=== PATIENT | male | born 1970 | race Caucasian/White ===

== ENCOUNTER 2018-03-22 10:28 | Inpatient (IN) | payer SELFPAY ==
[2018-03-22 12:17] LABS: #Eosinphils 0.4 thou/uL (0.0-0.7); #Lymphocytes 1.1 thou/uL (1.20-3.40); #Monocytes 0.5 thou/uL (0.11-0.59); %Basophils 0.4 % (0.0-1.0); %Eosinophils 7.3 % (0.0-10.0); %Lymphocytes 22.9 % (21.0-51.0); %Monocytes 9.4 % (0.0-10.0); %Neutrophils 60.1 % (42.0-75.0); Hemoglobin 12.4 g/dL (14.0-18.0); Mean Corpuscular HGB CONC 32.2 g/dL (32.0-36.0); Mean Corpuscular Hemoglobin 30.4 pg (27.0-31.0); Mean Corpuscular Volume 94.6 fL (78.0-98.0); Mean Platelet Volume 6.2 fL (7.4-10.4); Platelet Count 329 thou/uL (130-400); RBC Distribution Width 12.7 % (11.5-14.5); Red Blood Cell (RBC) Count 4.07 mill/uL (4.70-6.10)
[2018-03-22 12:31] LABS: ALT (SGPT) 28 U/L (8-55); AST (SGOT) 15 U/L (5-34); Albumin 3.7 g/dL (3.5-5.0); Alkaline Phosphatase 78 U/L (40-150); Anion Gap 13 mmol/L (10-20); BUN (Urea Nitrogen) 15 mg/dL (8.9-20.6); Bilirubin, Total 0.2 mg/dL (0.2-1.2); CRP (Inflammatory) 5.29 mg/dL (= or < 0.5); Calc. Creatinine Clearance 0 mL/min (70-130); Calcium 9.1 mg/dL (7.8-10.44); Carbon Dioxide 23 mmol/L (22-29); Chloride 108 mmol/L (98-107); Estimated GFR-MDRD 78; Glucose 76 mg/dL (70-105); Potassium 4.5 mmol/L (3.5-5.1); Protein, Total 7.7 g/dL (6.0-8.3); Sodium 139 mmol/L (136-145)
--- NOTE | 2018-03-22 12:51 | RAD ---
LEFT KNEE 4 VIEWS: HISTORY: Abscess. Pain. COMPARISON: None. FINDINGS: There is marked soft tissue swelling in the pretibial soft tissues at the level of the tibial tuberos ity. No significant joint effusion. No displaced fracture or malalignment. Mild medial compartment osteophyte formation. No osseous erosions are appreciated. Seen only on the lateral radiograph is a radiopacity projecting over the distal femur which may repre sent a zipper. There are punctate anterolateral soft tissue radiopacities. IMPRESSION: Marked soft tissue swelling over the tibial tuberosity. This may reflect underlying abscess given th e patient history. Contusion is also a possibility as well as superficial infrapatellar bursitis. POS: [facility]
--- NOTE | 2018-03-22 14:45 | PDOC.FPRHP ---
- History of Present Illness Chief Complaint: L knee bursitis History of Present Illness: This is a 47yo M with no PMH presenting to the ER with 2 month hx of LLE pain and swelling. Pt reports redness and painful swelling started around the knee and spread down to his ankle over 2 months. Reports pain is centered around the knee and is exacerbated by activity and palpation. Related symptoms of subjective fevers and fever at home (reported tmax 103), and decreased PO intake. Pt reports seeing [facility] ([facility] ) and them having drained his knee two weeks ago, and that he saw an orthopedic surgeon 10 days ago who gave him Bactrim but that it did not help. Two days ago pt tried to drain the wound himself by applying pressure and reports to have drained around 20ml of blood and "white stuff". Pt works in [employer] and spends a lot of time on his knees. ED Course: Pt got 1g of Vanc and had CBC, CMP, and ESR drawn. ER consulted orthopedic surgery who recommends admission and that they will evaluate. - Allergies/Adverse Reactions Allergies Allergy/AdvReac Type Severity Reaction Status Date / Time No Known Allergies Allergy Verified 03/27/17 15:44 - Home Medications Medication Instructions Recorded Confirmed Type No Known [No Known] 03/27/17 03/27/17 History - History PMHx: none PSHx: none FHx: Grandmother- Colon cancer, Father- valvulopathy Social: Tobacco- 20 pack year history (quit 2 years ago), past EtOH misuse ( quit drinking 5 years ago) - Review of Systems General: reports: fever/chills, weight/appetite/sleep changes Respiratory: denies: cough, congestion, shortness of breath Cardiovascular: denies: chest pain, palpitation Gastrointestinal: denies: nausea, vomiting, abdominal pain Skin: reports: lesions, itching Musculoskeletal: reports: tenderness, swelling Neurological: denies: syncope, seizure - Vital signs BP: 110/78 HR: 59 RR: 16 Tmax: 97.8 Pox: 97% on RA Wt: 100kg - Physical Exam Constitutional: NAD HEENT: normocephalic and atraumatic, EOMI, conjunctiva clear, MMM Heart: RRR, normal S1/S2, pulses present Lungs: CTAB, no respiratory distress, no wheezing Abdomen: soft, non-tender, bowel sounds present Musculoskeletal: normal structure, normal tone Skin: good turgor, capillary refill <2 seconds, other (LLE Erythema, and pitting edema extending 4cm superior to patela to distal ankle. Area is tender to palpation especially around knee. 2-3 draining (serous fluid) pustules around knee.) Psychiatric: normal mood and affect, good judgment and insight FMR H&P: Results - Labs Result Diagrams: 03/22/18 12:05 03/22/18 12:05 Lab results: WBC 5.0 thou/uL (4.8-10.8) 03/22/18 12:05 Hgb 12.4 g/dL (14.0-18.0) L 03/22/18 12:05 Hct 38.5 % (42.0-52.0) L 03/22/18 12:05 MCV 94.6 fL (78.0-98.0) 03/22/18 12:05 Plt Count 329 thou/uL (130-400) 03/22/18 12:05 Neutrophils % 60.1 % (42.0-75.0) 03/22/18 12:05 ESR Westergren 60 mm/hr (Less than 15) 03/22/18 12:05 Sodium 139 mmol/L (136-145) 03/22/18 12:05 Potassium 4.5 mmol/L (3.5-5.1) 03/22/18 12:05 Chloride 108 mmol/L (98-107) H 03/22/18 12:05 Carbon Dioxide 23 mmol/L (22-29) 03/22/18 12:05 BUN 15 mg/dL (8.9-20.6) 03/22/18 12:05 Creatinine 1.02 mg/dL (0.6-1.3) 03/22/18 12:05 Glucose 76 mg/dL (70-105) 03/22/18 12:05 Calcium 9.1 mg/dL (7.8-10.44) 03/22/18 12:05 Total Bilirubin 0.2 mg/dL (0.2-1.2) 03/22/18 12:05 AST 15 U/L (5-34) 03/22/18 12:05 ALT 28 U/L (8-55) 03/22/18 12:05 Alkaline Phosphatase 78 U/L (40-150) 03/22/18 12:05 C-Reactive Protein 5.29 mg/dL (= or < 0.5) H 03/22/18 12:05 Serum Total Protein 7.7 g/dL (6.0-8.3) 03/22/18 12:05 Albumin 3.7 g/dL (3.5-5.0) 03/22/18 12:05 FMR H&P: A/P - Problem List (1) Septic infrapatellar bursitis of left knee Current Visit: Yes Status: Acute Code(s): M71.162 - OTHER INFECTIVE BURSITIS , LEFT KNEE; B96.89 - OTH BACTERIAL AGENTS THE CAUSE OF DISEASES CLASSD [id number] (2) Cellulitis Current Visit: Yes Status: Acute Code(s): L03.90 - CELLULITIS, UNSPECIFIED - Plan This is a previously healthy 47yo M presenting with L septic bursitis and cellulitis extending down the distal LLE. Septic Bursitis/Cellulitis A- Pt does not meet any SIRS criteria and appears well but locally has impressive LLE exam. Pt reported to have failed outpatient treatment with an orthopedic surgeon. Received 1gm of Vanc in ED. P- Admit to inpatient - Resume Vanc 1.5g Q8HR, follow up on vanc trough - Await orthopedic surgery recs - monitor CBC and BMP Diet- NPO until ortho sees pt IVF- D5 1/2 NS 125ml/hr PPx- lovenox 40mg FMR H&P: Upper Level - Pertinent history 47 yo CM with no reported PMH p/w left knee pain, swelling, and redness for 2 months that has failed outpatient treatment. Pt first noticed pain and swelling to left knee and presented to stand alone ER when out of town. He was referred to sports medicine clinic in [place] for possible arthrocentesis. Pt had joint drained 2 weeks ago and was told he had patellar bursitis. Pt then visited orthopedic surgeon, Dr. Rosas, who prescribed Bactrim. Pt is currently on day 7 of his antibiotic course but presented to ER for worsening symptoms including fevers and drainage of clear/purulent fluid. - Pertinent findings Gen: Well developed in NAD CV: RRR, no MMR Resp: nonlabored, CTAB Abd: BS+, NTTP Ext: Significant erythema with 1+ pitting edema of LLE 4 cm above knee to distal ankle. Small areas of serous drainage just below patella. Significant TTP. - Plan Date/Time: 03/22/18 0725 I, Demar Oh MD PGY-3, have evaluated this patient and agree with findings/ plan as outlined by international organizer resident. Pertinent changes/additions are listed here. 1. Septic pre-patellar bursitis of left knee, failed outpatient management -Pt has failed outpatient treatment with Bactrim, admit to inpatient surgical floor -Orthopedic surgery consulted from ER, recommendations greatly appreciated -Wound and blood cultures obtained in ER but after administration of abx, await results -Will continue pt on Vancomycin for MRSA coverage -Keep NPO until surgical evaluation, start on D5 1/2NS @ 125. Resume diet if no surgical intervention planned. FULL code PPX: Lovenox for VTE, no GI indicated Disposition: Admit under inpatient status for anticipated length of stay greater than 2 midnights.
[2018-03-22] MEDS ORDERED: Dextrose 5 %-0.45 % NaCl 1,000 ML IV SCH (14:48)
[2018-03-22] MEDS ORDERED: Ondansetron ODT 4 MG TAB PO PRN (14:48)
[2018-03-22] MEDS ORDERED: Acetaminophen 325 MG TAB PO PRN (14:48)
[2018-03-22] MEDS ORDERED: Ondansetron HCl/PF 4 MG/2 ML Vial IVP PRN (14:48)
[2018-03-22 15:22] VITALS: BMI 31.5
--- NOTE | 2018-03-22 20:49 | HP ---
I have examined the patient. I have discussed the case with Dr. Mark Romero and agree with his as sessment and plan. HISTORY OF PRESENT ILLNESS: Briefly, Mr. Osullivan is a pleasant 47-year-old white male patient who roa d a left prepatellar bursitis examined by a physician in [place] approximately 3-4 months ago. I t was drained at that time, but found not to be infectious. Over the ensuing weeks, Mr. Osullivan took a course of Bactrim, but later developed more redness and pain in the area. He had been working in [place] and returned to [place] several days ago. The knee became progressively redder and began to drain a "bloody pus" looking drainage. He also had fever and chills. He came to our ER today and wa s subsequently admitted with an infected bursitis and surrounding cellulitis. PHYSICAL EXAMINATION: VITAL SIGNS: His temperature is currently 98.1. His pulse rate is 63 and regular, respirations 16, blood pressure is 120/80. GENERAL: Mr. Osullivan is awake, alert, pleasant, in no distress. EAR, NOSE, AND THROAT: Clear. NECK: Supple. CARDIAC: Heart rhythm regular. No gallop or murmur. LUNGS: Clear. No rales or wheezes. ABDOMEN: Flat and soft. EXTREMITIES: With particular attention to his left knee, he has redness and pain over his prepatella r bursa of the left knee. The joint does not appear to be involved. There is a cellulitis extending distally to just beyond the mid shaft of the tibia. It is erythematous, warm to touch, and has some pitting edema. There are still some pus draining from an incision in the inferior portion of the bu rsa. ASSESSMENT: Infectious bursitis and cellulitis. PLAN: Admit, have started vancomycin. I doubt that the joint is involved, but we will have Orthoped ic examine the patient as well.
[2018-03-22] MEDS: Vancomycin HCl 1.5 GM in Sodium Chloride 0.9% 250 ML 300 ML IVPB SCH (21:27)
--- NOTE | 2018-03-23 05:36 | CON ---
DATE OF CONSULTATION: 03/22/2018 REASON FOR CONSULTATION: Cellulitis of the left leg. 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 He developed pain and swelling in his left knee, was treated with outpatient antibiotics. He had an aspiration of his knee in [place], results of these are not known. About 20 mL of fluid was obta ined. Currently, he is feeling better. His pain is less. He still has some redness and swelling in the leg. He is on IV vancomycin, has been all day. Exam shows a pleasant gentleman in no distress. He has cellulitis over his leg. He has swollen prep atellar bursa with just a small scab in this area. There is no intra-articular effusion and I do not think there is any fluid collection in the prepatellar bursa as of this time. ASSESSMENT: Prepatellar bursitis. No evidence of septic knee. Plan at this time is for IV vancomyc in. This is likely a resistant organism. We will follow for collections of fluid, which may have to be drained. I explained to him that sometimes as the infection resolves, some of the necrotic tissu e can possibility, but this time, surgery is not planned.
[2018-03-23 05:40] LABS: #Eosinphils 0.4 thou/uL (0.0-0.7); #Lymphocytes 1.4 thou/uL (1.20-3.40); #Monocytes 0.5 thou/uL (0.11-0.59); #Neutrophils 2.2 thou/uL (1.40-6.50); %Basophils 0.5 % (0.0-1.0); %Eosinophils 9.5 % (0.0-10.0); %Lymphocytes 31.3 % (21.0-51.0); %Monocytes 10.2 % (0.0-10.0); %Neutrophils 48.5 % (42.0-75.0); Hemoglobin 12.4 g/dL (14.0-18.0); Mean Corpuscular HGB CONC 33.5 g/dL (32.0-36.0); Mean Corpuscular Hemoglobin 31.2 pg (27.0-31.0); Mean Corpuscular Volume 93.2 fL (78.0-98.0); Mean Platelet Volume 6.1 fL (7.4-10.4); Platelet Count 353 thou/uL (130-400); RBC Distribution Width 12.7 % (11.5-14.5); Red Blood Cell (RBC) Count 3.97 mill/uL (4.70-6.10); White Blood Cell (WBC) Count 4.5 thou/uL (4.8-10.8)
[2018-03-23 05:59] LABS: Anion Gap 10 mmol/L (10-20); BUN (Urea Nitrogen) 16 mg/dL (8.9-20.6); Calc. Creatinine Clearance 124 mL/min (70-130); Calcium 8.9 mg/dL (7.8-10.44); Carbon Dioxide 24 mmol/L (22-29); Chloride 109 mmol/L (98-107); Estimated GFR-MDRD 77; Glucose 98 mg/dL (70-105); Potassium 3.9 mmol/L (3.5-5.1); Sodium 139 mmol/L (136-145)
[2018-03-23] MEDS: Vancomycin HCl 1.5 GM in Sodium Chloride 0.9% 250 ML 300 ML IVPB SCH ×3 (06:16→22:59)
--- NOTE | 2018-03-23 08:00 | PDOC.FM ---
- Subjective Subjective: Patient reports that the swelling and redness of his L leg/knee have improved slightly from yesterday. He reports that the pain has not gotten any better, but he does not want any pain medications. He denies any fevers. - Objective MAR Reviewed: Yes Vital Signs & Weight: Vital Signs (12 hours) Temp Pulse Resp BP Pulse Ox 03/23/18 04:00 98.1 F 71 16 114/72 97 03/22/18 23:05 97.9 F 67 16 117/76 95 03/22/18 20:10 98.2 F 68 18 03/22/18 20:00 98.2 F 68 18 123/78 98 Weight Weight 99.79 kg I&O: 03/22/18 03/23/18 03/24/18 06:59 06:59 06:59 Intake Total 500 Balance 500 Result Diagrams: 03/23/18 04:58 03/23/18 04:58 <Susie Smith - Last Filed: 03/23/18 07:58> - Objective Vital Signs & Weight: Vital Signs (12 hours) Temp Pulse Resp BP Pulse Ox 03/23/18 08:00 97.9 F 69 18 103/67 97 03/23/18 04:00 98.1 F 71 16 114/72 97 03/22/18 23:05 97.9 F 67 16 117/76 95 Weight Weight 99.79 kg I&O: 03/22/18 03/23/18 03/24/18 06:59 06:59 06:59 Intake Total 500 Balance 500 Result Diagrams: 03/23/18 04:58 03/23/18 04:58 <Irina Hernandez - Last Filed: 03/23/18 10:37> Phys Exam - Physical Examination Constitutional: NAD HEENT: moist MMs Respiratory: no wheezing, no rales, no rhonchi, clear to auscultation bilateral Cardiovascular: RRR, no significant murmur, no rub Gastrointestinal: soft, non-tender, no distention, positive bowel sounds erythema, warmth, swelling of L leg with weeping from L knee. FROM of L leg, but with pain with movement neurovascularly intact x4 Psychiatric: normal affect, A&O x 3 Skin: normal turgor, cap refill <2 seconds <Susie Smith - Last Filed: 03/23/18 07:58> Dx/Plan (1) Septic prepatellar bursitis of left knee Code(s): M71.162 - OTHER INFECTIVE BURSITIS, LEFT KNEE Status: Acute (2) Cellulitis Code(s): L03.90 - CELLULITIS, UNSPECIFIED Status: Acute QualifierTitle: Site of cellulitis: extremity Site of cellulitis of extremity: lower extremity Laterality: left Qualified Code(s): L03.116 - Cellulitis of left lower limb - Plan Plan: This is a previously healthy 47yo M presenting with L septic bursitis and cellulitis extending down the distal LLE. Septic Pre-patellar Bursitis of L knee Pt does not meet any SIRS criteria and appears, but locally has impressive LLE exam. Pt reported to have failed outpatient treatment with an orthopedic surgeon. Received 1gm of Vanc in ED. - Resume Vanc 1.5g Q8HR, follow up on vanc trough - Ortho consulted, appreciate recs - ultrasound of knee - Blood cultures - Wound cultures Cellulitis of LLE -Plan as above <Susie Smith - Last Filed: 03/23/18 07:58> Attending Addendum - Attending Addendum Date/Time: 03/23/18 1036 I personally evaluated the patient and discussed the management with Dr. Smith. I agree with the History, Examination, Assessment and Plan documented above with any addition or exceptions noted below. The patient is on vancomycin for left knee septic bursitis/cellulitis of the LLE. Redness appears to be slightly improved based on the margins drawn in pen. He notes less pain. Will continue antibiotics. LLE doppler negative for dvt. <Irina Hernandez - Last Filed: 03/23/18 10:37>
--- NOTE | 2018-03-23 08:17 | ULT ---
ULTRASOUND WITH DOPPLER DUPLEX VENOUS LOWER EXTREMITY LEFT CPT: 90139 ICD-10-PCS: B54D HISTORY: Left lower extremity pain, erythema, and edema. TECHNIQUE: Color flow Doppler, spectral waveform analysis of pulsed Doppler, and salazar-scale imaging with aspen luann and augmentation, were used to evaluate the bilateral common femoral, femoral, popliteal, patient service coordinator ior tibial, and superficial femoral, veins; and the proximal portions of the profunda femoral and gre ater saphenous, veins. FINDINGS: Appropriate compressibility and flow within the imaged deep vein system of the left lower extremity. IMPRESSION: No deep vein thrombosis. POS: [facility]
[2018-03-23] MEDS: Enoxaparin Sodium 40 MG/0.4 ML SYRINGE SC SCH (11:19)
[2018-03-23 13:44] LABS: Vancomycin, Trough 19.4 ug/mL
[2018-03-23] MEDS ORDERED: Fentanyl 100 MCG/2 ML VIAL SLOW IVP SCH (14:45)
[2018-03-23] MEDS ORDERED: Lidocaine 1% (PF) 30 ML VIAL SC SCH (14:45)
--- NOTE | 2018-03-23 16:55 | PRG ---
DATE OF SERVICE: 03/23/2018 SUBJECTIVE: Barry is a 47-year-old white male who was admitted to the [facility] Service at t he request of Dr. Rosas for a draining prepatellar bursa. OBJECTIVE: GENERAL: At the bedside, he still has some drainage coming out of the inferior aspect of the wound. His erythema is slightly improved and his range of motion of the knee is improved somewhat. VITAL SIGNS: Temperature 97.4, pulse 65, respiratory rate 14, O2 saturation on room air is 96%, and blood pressure 116/77. GENERAL: He is alert and oriented to person, place, time, and situation. Grossly nonfocal. EXTREMITIES: Visual inspection of left lower extremity demonstrates his knee infrapatellar bursa to be a fluctuant full. I can actually express serous fluid out with pressure and some purulence is als o accompanied this at the inferior aspect where there is a skin breakdown. IMPRESSION: Left knee septic prepatellar bursitis. PLAN: 1. A bedside incision and drainage, washout exploration be performed. The patient is quite stable a nd this can be done at local with little bit of fentanyl. 2. Please see procedure note of bedside I&D.
[2018-03-23] MEDS ORDERED: HYDROcodone/Acetaminophen 5/325 mg Tablet PO PRN (18:24)
--- NOTE | 2018-03-23 21:37 | OP ---
DATE OF PROCEDURE: 03/23/2018 PREPROCEDURE DIAGNOSIS: Left knee prepatellar septic bursitis. POSTPROCEDURE DIAGNOSIS: Left knee prepatellar septic bursitis. OPERATIVE PROCEDURE: Left knee, bedside incision, drainage, irrigation and packing with iodoform gau ze of left knee prepatellar septic bursitis. SURGEON: Qamar Eden PA-C. ANESTHESIA: Fentanyl 100 mcg IV with local skin wheal anesthesia 1% lidocaine without epinephrine. INDICATIONS FOR SURGERY: Barry is a 47-year-old white male who has had about 3-4 weeks of swelling and drainage out of his left knee prepatellar bursa. I believe he has had it aspirated which ultima tely became infected. He was treated as an outpatient with oral antibiotics, this failed. He presen cristian to Dr. Rosas's office with erythema and cellulitis as a result. He was admitted to the [facility]. We are consulted for orthopedic follow on care and he did have a slight response t o antibiotics, but examination demonstrated fluctuance and drainage at the inferior aspect of the kne e. Therefore, we went ahead and elected to proceed with incision, drainage, exploration, washout and packing with iodoform. PROCEDURE IN DETAIL: After informed consent was obtained at the bedside. The patient has already re ceived preoperative antibiotics in the form of vancomycin. He received 100 mcg fentanyl. Once adequ ate level of anesthesia was obtained, we then prepped and draped the left knee in a sterile fashion. A skin wheal anesthesia was administered with 1% Xylocaine. Once adequate anesthesia was obtained, a #10 blade was then used to incise the skin down into the bursa. Once this was carried, we encounte red purulence and serous drainage immediately upon entering the bursa. It was a well-demarcated area indicating that it had some chronicity to it. A hemorrhagic serous drainage was also noted and it w as quite hyperemic. I was able to extend my incision up to about mid patellar pole and able to digit ally palpate the recesses of the abscess which in total measured about 5 x 5 cm in total of an open c avity above the patella tendon and under the fatty layer. It was irrigated copiously and then I had packed it with half inch iodoform gauze. Sterile dressing was applied with Kerlix and 4 x 4s and an Davi bandage. The procedure was terminated without any complication. Culture sensitivity has already been obtained. The patient tolerated well and remained in stable condition pre and post procedure.
[2018-03-23] MEDS: HYDROcodone/Acetaminophen 5/325 mg Tablet PO PRN (22:59)
[2018-03-24 05:45] LABS: #Eosinphils 0.4 thou/uL (0.0-0.7); #Lymphocytes 1.6 thou/uL (1.20-3.40); #Monocytes 0.5 thou/uL (0.11-0.59); #Neutrophils 2.5 thou/uL (1.40-6.50); %Basophils 0.4 % (0.0-1.0); %Lymphocytes 31.7 % (21.0-51.0); %Monocytes 9.3 % (0.0-10.0); %Neutrophils 50.5 % (42.0-75.0); Hemoglobin 12.5 g/dL (14.0-18.0); Mean Corpuscular HGB CONC 33.3 g/dL (32.0-36.0); Mean Corpuscular Hemoglobin 31.1 pg (27.0-31.0); Mean Corpuscular Volume 93.4 fL (78.0-98.0); Mean Platelet Volume 5.9 fL (7.4-10.4); Platelet Count 348 thou/uL (130-400); RBC Distribution Width 12.7 % (11.5-14.5); Red Blood Cell (RBC) Count 4.03 mill/uL (4.70-6.10)
--- NOTE | 2018-03-24 05:56 | PDOC.FM ---
- Subjective Subjective: Pt. continues to feel improved, pain is tolerable with norco. He denies fever/ chills, numbness/tingling/weakness/warmth in L leg, chest pain, shortness of breath, irregular bowel movements. - Objective Vital Signs & Weight: Vital Signs (12 hours) Temp Pulse Resp BP Pulse Ox 03/23/18 23:07 97.8 F 66 16 115/68 96 03/23/18 20:17 97.4 F L 64 16 Weight Weight 99.79 kg I&O: 03/22/18 03/23/18 03/24/18 06:59 06:59 06:59 Intake Total 500 250 Balance 500 250 Result Diagrams: 03/24/18 05:00 03/24/18 05:00 <Lester Mandel - Last Filed: 03/24/18 10:04> - Objective Vital Signs & Weight: Vital Signs (12 hours) Temp Pulse Resp BP Pulse Ox 03/24/18 11:21 97.6 F 57 L 18 114/77 96 03/24/18 09:34 97.7 F 62 16 98 03/24/18 07:48 97.7 F 62 16 101/65 98 03/24/18 04:00 97.9 F 68 16 125/68 97 Weight Weight 99.79 kg I&O: 03/23/18 03/24/18 03/25/18 06:59 06:59 06:59 Intake Total 500 250 Balance 500 250 Result Diagrams: 03/24/18 05:00 03/24/18 05:00 <Irina Hernandez - Last Filed: 03/24/18 13:01> Phys Exam - Physical Examination Respiratory: no wheezing, clear to auscultation bilateral Cardiovascular: RRR, no significant murmur Musculoskeletal: no edema (Mild erythema and warmth L knee, bandages stained with a mild amount of serosanguinous exudate, ROM intact with pain), pulses present <Lester Mandel - Last Filed: 03/24/18 10:04> Dx/Plan (1) Septic bursitis Code(s): M71.10 - OTHER INFECTIVE BURSITIS, UNSPECIFIED SITE Status: Acute - Plan Plan: 1. Septic pre-patellar bursitis of left knee, failed outpatient management -Pt has failed outpatient treatment with Bactrim, admit to inpatient surgical floor -Orthopedic surgery recs: no surgery at this time, bedside I/D -Wound and blood cultures obtained in ER but after administration of abx, no growth to date -Will continue pt on Vancomycin for MRSA coverage Dispo: pt continues to feel improved, will await ortho recs <Lester Mandel - Last Filed: 03/24/18 10:04> Attending Addendum - Attending Addendum Date/Time: 03/24/18 1300 I personally evaluated the patient and discussed the management with Dr. Mandel. I agree with the History, Examination, Assessment and Plan documented above with any addition or exceptions noted below. The patient had an I/D with ortho yesterday. Per pt, he should be getting a wound vac. He will continue vancomycin. Vanc trough appropriate. Erythema is improved as is swelling in the LLE. <Irina Hernandez - Last Filed: 03/24/18 13:01>
[2018-03-24 06:06] LABS: Anion Gap 10 mmol/L (10-20); BUN (Urea Nitrogen) 17 mg/dL (8.9-20.6); Calc. Creatinine Clearance 137 mL/min (70-130); Carbon Dioxide 27 mmol/L (22-29); Chloride 108 mmol/L (98-107); Estimated GFR-MDRD 86; Glucose 83 mg/dL (70-105); Potassium 4.1 mmol/L (3.5-5.1); Sodium 141 mmol/L (136-145)
[2018-03-24] MEDS: Vancomycin HCl 1.5 GM in Sodium Chloride 0.9% 250 ML 300 ML IVPB SCH ×3 (06:38→22:47)
[2018-03-24] MEDS: HYDROcodone/Acetaminophen 5/325 mg Tablet PO PRN ×4 (06:39→20:11)
[2018-03-24] MEDS: Enoxaparin Sodium 40 MG/0.4 ML SYRINGE SC SCH (10:04)
[2018-03-24] MEDS ORDERED: Lidocaine 4% Topical Sol 50 ML BOT TOP SCH (16:15)
[2018-03-24 21:32] LABS: Vancomycin, Trough 26.8 ug/mL
[2018-03-25] MEDS: HYDROcodone/Acetaminophen 5/325 mg Tablet PO PRN ×6 (00:34→22:54)
[2018-03-25 04:43] LABS: #Eosinphils 0.4 thou/uL (0.0-0.7); #Lymphocytes 1.8 thou/uL (1.20-3.40); #Monocytes 0.3 thou/uL (0.11-0.59); %Basophils 0.4 % (0.0-1.0); %Lymphocytes 40.3 % (21.0-51.0); %Monocytes 6.8 % (0.0-10.0); %Neutrophils 44.6 % (42.0-75.0); Hemoglobin 12.3 g/dL (14.0-18.0); Mean Corpuscular HGB CONC 33.7 g/dL (32.0-36.0); Mean Corpuscular Hemoglobin 31.5 pg (27.0-31.0); Mean Corpuscular Volume 93.4 fL (78.0-98.0); Mean Platelet Volume 5.9 fL (7.4-10.4); Platelet Count 341 thou/uL (130-400); RBC Distribution Width 12.6 % (11.5-14.5); Red Blood Cell (RBC) Count 3.92 mill/uL (4.70-6.10); White Blood Cell (WBC) Count 4.5 thou/uL (4.8-10.8)
[2018-03-25 04:59] LABS: Anion Gap 12 mmol/L (10-20); BUN (Urea Nitrogen) 13 mg/dL (8.9-20.6); Calc. Creatinine Clearance 155 mL/min (70-130); Calcium 8.8 mg/dL (7.8-10.44); Carbon Dioxide 25 mmol/L (22-29); Chloride 108 mmol/L (98-107); Estimated GFR-MDRD Greater than 90; Glucose 81 mg/dL (70-105); Potassium 4.1 mmol/L (3.5-5.1); Sodium 141 mmol/L (136-145)
[2018-03-25] MEDS: Vancomycin HCl 1.5 GM in Sodium Chloride 0.9% 250 ML 300 ML IVPB SCH ×2 (04:59→17:17)
--- NOTE | 2018-03-25 09:14 | PDOC.FM ---
- Subjective Subjective: Patient reports some sharp pain associated with the wound vac. He reports that the redness and swelling have improved overall and he is able to still move his leg. He denies any fevers. - Objective MAR Reviewed: Yes Vital Signs & Weight: Vital Signs (12 hours) Temp Pulse Resp BP BP Pulse Ox 03/25/18 08:00 97.5 F L 59 L 16 136/99 H 97 03/25/18 04:00 97.9 F 54 L 16 129/84 96 03/24/18 23:45 97.8 F 57 L 20 123/77 95 Weight Weight 99.79 kg I&O: 03/24/18 03/25/18 03/26/18 06:59 06:59 06:59 Intake Total 250 1380 1500 Balance 250 1380 1500 Result Diagrams: 03/25/18 03:53 03/25/18 03:53 <Susie Smith - Last Filed: 03/25/18 09:15> - Objective Vital Signs & Weight: Vital Signs (12 hours) Temp Pulse Resp BP Pulse Ox 03/25/18 12:00 97.7 F 58 L 14 136/82 97 03/25/18 08:00 97.5 F L 59 L 16 136/99 H 97 03/25/18 04:00 97.9 F 54 L 16 129/84 96 Weight Admit Weight 99.79 kg Weight 99.79 kg I&O: 03/24/18 03/25/18 03/26/18 06:59 06:59 06:59 Intake Total 250 1380 1500 Balance 250 1380 1500 Result Diagrams: 03/25/18 03:53 03/25/18 03:53 <Corey Aldana - Last Filed: 03/25/18 13:59> Phys Exam - Physical Examination Constitutional: NAD HEENT: moist MMs Respiratory: no wheezing, no rales, no rhonchi, clear to auscultation bilateral Cardiovascular: RRR, no significant murmur, no rub Gastrointestinal: soft, non-tender, no distention, positive bowel sounds Musculoskeletal: pulses present mild erythema of LLE, improved. Wound vac in place on L knee Neurological: non-focal, moves all 4 limbs Psychiatric: normal affect, A&O x 3 Skin: normal turgor, cap refill <2 seconds <Susie Smith - Last Filed: 03/25/18 09:15> Dx/Plan (1) Septic prepatellar bursitis of left knee Code(s): M71.162 - OTHER INFECTIVE BURSITIS, LEFT KNEE Status: Acute (2) Cellulitis Code(s): L03.90 - CELLULITIS, UNSPECIFIED Status: Acute QualifierTitle: Site of cellulitis: extremity Site of cellulitis of extremity: lower extremity Laterality: left Qualified Code(s): L03.116 - Cellulitis of left lower limb - Plan Plan: This is a previously healthy 47yo M presenting with L septic bursitis and cellulitis extending down the distal LLE. Septic Pre-patellar Bursitis of L knee Pt does not meet any SIRS criteria and appears, but locally has impressive LLE exam. Pt reported to have failed outpatient treatment with an orthopedic surgeon. Received 1gm of Vanc in ED. Pt had I&D performed by ortho on 03/23. Wound cultures are growing staph aureus, sensitivities pending. - Vanc 1.5g Q8HR, follow up on vanc trough - Ortho consulted, appreciate recs - Blood cultures - Wound cultures - plan to switch to PO abx pending results Cellulitis of LLE -Plan as above, improving Dispo: d/c today or tomorrow on PO abx pending ortho recs <Susie Smith - Last Filed: 03/25/18 09:15> Attending Addendum - Attending Addendum Date/Time: 03/25/18 5821 I personally evaluated the patient and discussed the management with Dr. Smith I agree with the History, Examination, Assessment and Plan documented above with any addition or exceptions noted below. Wound vac was placed s/p bedside I &D patient should be able to be dismissed home soon with po antibiotic pending culture results and plan for outpatient wound care and outpatient Orthopedic follow up. <Corey Aldana - Last Filed: 03/25/18 13:59>
[2018-03-25] MEDS: Enoxaparin Sodium 40 MG/0.4 ML SYRINGE SC SCH (09:19)
[2018-03-26] MEDS: HYDROcodone/Acetaminophen 5/325 mg Tablet PO PRN ×4 (03:34→21:55)
[2018-03-26] MEDS: Vancomycin HCl 1.5 GM in Sodium Chloride 0.9% 250 ML 300 ML IVPB SCH (05:59)
[2018-03-26] MEDS: Enoxaparin Sodium 40 MG/0.4 ML SYRINGE SC SCH (07:57)
--- NOTE | 2018-03-26 08:44 | PDOC.FM ---
- Subjective Subjective: Patient reports that the swelling and redness continue to improve every day. He reports some sharp pain in the wound from the wound vac. He denies any fevers. He has been ambulating without much difficulty. - Objective MAR Reviewed: Yes Vital Signs & Weight: Vital Signs (12 hours) Temp Pulse Resp BP Pulse Ox 03/26/18 08:25 97.8 F 59 L 16 03/26/18 08:00 97.8 F 59 L 16 137/87 97 03/26/18 04:00 98.2 F 57 L 12 132/82 96 03/25/18 23:59 98.1 F 55 L 16 123/81 96 Weight Admit Weight 99.79 kg Weight 99.79 kg I&O: 03/25/18 03/26/18 03/27/18 06:59 06:59 06:59 Intake Total 1380 2810 Balance 1380 2810 Result Diagrams: 03/25/18 03:53 03/25/18 03:53 <Susie Smith - Last Filed: 03/26/18 08:42> - Objective Vital Signs & Weight: Vital Signs (12 hours) Temp Pulse Resp BP Pulse Ox 03/26/18 11:39 97.7 F 58 L 16 128/83 97 03/26/18 08:25 97.8 F 59 L 16 03/26/18 08:00 97.8 F 59 L 16 137/87 97 03/26/18 04:00 98.2 F 57 L 12 132/82 96 Weight Admit Weight 99.79 kg Weight 99.79 kg I&O: 03/25/18 03/26/18 03/27/18 06:59 06:59 06:59 Intake Total 1380 2810 Balance 1380 2810 Result Diagrams: 03/25/18 03:53 03/25/18 03:53 <Mason Chavez - Last Filed: 03/26/18 12:40> Phys Exam - Physical Examination Constitutional: NAD HEENT: moist MMs Respiratory: no wheezing, no rales, no rhonchi, clear to auscultation bilateral Cardiovascular: RRR, no significant murmur, no rub Gastrointestinal: soft, non-tender, no distention, positive bowel sounds Musculoskeletal: pulses present (2+ pedal pulses bilaterally) trace edema in LLE with erythema and warmth, but improved from yesterday dressing and wound vac in place Neurological: non-focal, moves all 4 limbs Psychiatric: normal affect, A&O x 3 Skin: normal turgor, cap refill <2 seconds <Susie Smith - Last Filed: 03/26/18 08:42> Dx/Plan (1) Septic prepatellar bursitis of left knee Code(s): M71.162 - OTHER INFECTIVE BURSITIS, LEFT KNEE Status: Acute (2) Cellulitis Code(s): L03.90 - CELLULITIS, UNSPECIFIED Status: Acute QualifierTitle: Site of cellulitis: extremity Site of cellulitis of extremity: lower extremity Laterality: left Qualified Code(s): L03.116 - Cellulitis of left lower limb - Plan Plan: This is a previously healthy 47yo M presenting with L septic bursitis and cellulitis extending down the distal LLE. Septic Pre-patellar Bursitis of L knee Pt did not meet any SIRS criteria, but initially had purulent drainage from pre- patellar bursa and cellulitis that extended from the knee to the ankle on the LLE. Pt reported to have failed outpatient treatment with bactrim. Received 1gm of Vanc in ED. Pt had I&D performed by ortho on 03/23. Wound cultures are growing staph aureus, sensitivities pending. - Vanc 1.5g Q8HR, follow up on vanc trough - Ortho consulted, appreciate recs - Blood cultures - Wound cultures - plan to switch to PO abx pending results - Will have wound vac removed prior to d/c Cellulitis of LLE -Plan as above, improving Dispo: d/c today or tomorrow on PO abx pending ortho recs <Susie Smith - Last Filed: 03/26/18 08:42> Attending Addendum - Attending Addendum Date/Time: 03/26/18 8177 I personally evaluated the patient and discussed the management with Dr. Smith. I agree with and repeated the History, Examination, Assessment and Plan documented above with any addition or exceptions noted below. Likely d/c today with antibiotics. Likely failed bactrim, although a sensitive organism, because he had developed septic bursitis. Await ortho recs if they agree with discharge. <Mason Chavez - Last Filed: 03/26/18 12:40>
[2018-03-26] MEDS: Ibuprofen 800 MG TAB PO PRN ×2 (09:12→17:33)
--- NOTE | 2018-03-26 16:20 | PRG ---
DATE OF SERVICE: 03/26/2018 SUBJECTIVE: Barry is now 3 days status post incision and drainage, washout at the bedside of the l eft prepatellar septic bursitis. He done relatively well. He is improving every day. He is able to ambulate with more and more weightbearing daily. He denies any fevers, nausea, and vomiting, and hi s erythema is certainly receded. Culture and sensitivity demonstrated Staph aureus with resistance t o amoxicillin and piperacillin. At this time, we are waiting for the primary service to select an or al antibiotic for home discharge. PHYSICAL EXAMINATION: His incision is clean. It is packed. Erythema is minimal. His leg looks goo d. His range of motion of his knee is improved. ASSESSMENT: A 47-year-old male with prepatellar left knee septic bursitis, status post incision and drainage 3 days with a culture demonstrated krishnan-sensitive Staphylococcus. PLAN: 1. I go and reconsult wound care to demonstrate and educate the patient on self-administered wet to dry dressings. He will follow up with Dr. Rosas in clinic in 7-10 days. 2. Defer oral outpatient antibiotic of choice to admitting service. Probable discharge tomorrow blaire beltran, which is March 27, 2018.
[2018-03-26] MEDS: Saccharomyces boulardii 250 MG CAP PO SCH (16:36)
[2018-03-26] MEDS: Clindamycin 150 MG CAP PO SCH ×2 (17:33→23:38)
[2018-03-27 05:27] VITALS: TEMP 97.9
[2018-03-27] MEDS: Clindamycin 150 MG CAP PO SCH ×2 (05:45→13:54)
[2018-03-27] MEDS: HYDROcodone/Acetaminophen 5/325 mg Tablet PO PRN ×2 (08:32→13:51)
[2018-03-27] MEDS: Saccharomyces boulardii 250 MG CAP PO SCH (08:32)
[2018-03-27] MEDS: Enoxaparin Sodium 40 MG/0.4 ML SYRINGE SC SCH (08:34)
--- NOTE | 2018-03-27 09:27 | PDOC.FM ---
- Subjective Subjective: Pt denies any fevers/chills. Reports the swelling, redness, and pain in his LLE continue to improve. He is walking without difficulty. He did not take as much pain meds yesterday. The wound vac is still in place. - Objective MAR Reviewed: Yes Vital Signs & Weight: Vital Signs (12 hours) Temp Pulse Resp BP BP Pulse Ox 03/27/18 07:44 97.9 F 54 L 18 119/79 96 03/27/18 04:00 97.9 F 60 16 138/81 96 03/26/18 23:47 98 F 62 16 121/77 95 Weight Admit Weight 99.79 kg Weight 99.79 kg I&O: 03/26/18 03/27/18 03/28/18 06:59 06:59 06:59 Intake Total 2810 1550 Balance 2810 1550 Result Diagrams: 03/25/18 03:53 03/25/18 03:53 <Susie Smith - Last Filed: 03/27/18 09:24> - Objective Vital Signs & Weight: Vital Signs (12 hours) Temp Pulse Resp BP BP Pulse Ox 03/27/18 11:58 97.9 F 54 L 16 125/80 98 03/27/18 07:44 97.9 F 54 L 18 119/79 96 03/27/18 04:00 97.9 F 60 16 138/81 96 Weight Admit Weight 99.79 kg Weight 99.79 kg I&O: 03/26/18 03/27/18 03/28/18 06:59 06:59 06:59 Intake Total 2810 1550 Balance 2810 1550 Result Diagrams: 03/25/18 03:53 03/25/18 03:53 <Mason Chavez - Last Filed: 03/27/18 12:54> Phys Exam - Physical Examination Constitutional: NAD HEENT: moist MMs Respiratory: no wheezing, no rales, no rhonchi, clear to auscultation bilateral Cardiovascular: RRR, no significant murmur, no rub Gastrointestinal: soft, non-tender, no distention, positive bowel sounds Musculoskeletal: pulses present, edema present (trace pitting edema in LLE) erythema and warmth improved on LLE with wound vac and dressing in place Neurological: non-focal, moves all 4 limbs Psychiatric: normal affect, A&O x 3 <Susie Smith - Last Filed: 03/27/18 09:24> Dx/Plan (1) Septic prepatellar bursitis of left knee Code(s): M71.162 - OTHER INFECTIVE BURSITIS, LEFT KNEE Status: Acute (2) Cellulitis Code(s): L03.90 - CELLULITIS, UNSPECIFIED Status: Acute QualifierTitle: Site of cellulitis: extremity Site of cellulitis of extremity: lower extremity Laterality: left Qualified Code(s): L03.116 - Cellulitis of left lower limb - Plan Plan: This is a previously healthy 47yo M presenting with L septic bursitis and cellulitis extending down the distal LLE. Septic Pre-patellar Bursitis of L knee Pt did not meet any SIRS criteria, but initially had purulent drainage from pre- patellar bursa and cellulitis that extended from the knee to the ankle on the LLE. Pt reported to have failed outpatient treatment with bactrim. Received 1gm of Vanc in ED. Pt had I&D performed by ortho on 03/23. Wound cultures are growing staph aureus. - Transitioned from vanc to clinda yesterday - Ortho consulted, appreciate recs - Blood cultures NG - Wound cultures growing staph aureus - Will have wound vac removed today by wound care and pt will be taught by them how to pack with wet to dry dressings Cellulitis of LLE -Plan as above, improving Dispo: d/c today on PO abx <Susie Smith - Last Filed: 03/27/18 09:24> Attending Addendum - Attending Addendum Date/Time: 03/27/18 3238 I personally evaluated the patient and discussed the management with Dr. Archer and team. I agree with and repeated the History, Examination, Assessment and Plan documented above with any addition or exceptions noted below. Wound care, likely bactrim for outpatient antibiotics. <Mason Chavez - Last Filed: 03/27/18 12:54>
[2018-03-27 15:13] VITALS: BP 121/74
--- NOTE | 2018-03-28 14:41 | DIS-2 ---
DATE OF ADMISSION: 03/22/2018 DATE OF DISCHARGE: 03/27/2018 ADMITTING ATTENDING: Gilberto Melton M.D. DISCHARGE ATTENDING: Mason Chavez M.D. ADMITTING RESIDENT: Mark Romero DISCHARGE RESIDENT: Susie Smith M.D. CONSULTATIONS: Dr. Simmons with Orthopedics. PROCEDURES: Left knee incision and drainage on 03/23/2018. PRIMARY DIAGNOSES: 1. Left knee prepatellar septic bursitis. 2. Left lower extremity cellulitis. DISCHARGE MEDICATIONS: 1. Clindamycin 300 mg p.o. q.6h. for 14 days. 2. Ibuprofen 800 mg p.o. q.6h. p.r.n. pain. 3. Florastor 250 mg p.o. daily for 14 days. DISCONTINUED MEDICATIONS: None. HISTORY OF PRESENT ILLNESS AND HOSPITAL COURSE: This is a 47-year-old male with no significant past medical history who presented to the ER due to left lower extremity swelling, erythema and pain. The patient had a purulent material draining from his left knee. The patient had been recently seen by an orthopedic doctor and had his left prepatellar bursa drained due to bursitis. However, he has bee n doing some tiling work and had continued to remain on his knees a lot during the day. The patient had developed an infection in that region. The patient was continued on vancomycin until the sensiti vities to the wound culture came back. The patient experienced significant improvement of his sympto ms over the course of his hospitalization. The patient had an incision and drainage done on 03/23/20 18. The wound culture grew out Staph aureus resistant to piperacillin and amoxicillin, sensitive to everything else. The patient had negative blood cultures, no white count and everything else remaine d stable throughout his hospitalization. After the incision and drainage the patient had had a wound VAC placed initially and it remained in until his last day of hospitalization, at which time, wound care removed this and taught the patient how to use wet to dry dressings. The patient was then disch arged on clindamycin to complete a 14 day course. The patient will follow up with Ortho in 1 week. DISPOSITION: Stable. DISCHARGE INSTRUCTIONS: 1. Location: Home. 2. Diet: Regular. 3. Activity: As tolerated. 4. Follow up with Dr. Rosas within 7 days.
== END 2018-03-27 16:16 | disposition home or self-care (01) | DRG 501 ==
LOC: ERS 10:28 → SURG A 14:28
PROVIDERS: ADMIT Family Medicine; ATTEND Family Medicine
PROC: 0M9P0ZZ Drainage of Left Knee Bursa and Ligament, Open Approach (ICD-10-PCS; principal; 2018-03-23)
PROC: 2W4RX5Z Packing of Left Lower Leg using Packing Material (ICD-10-PCS; 2018-03-23)
DX: M71.162 Other infective bursitis, left knee (principal); L03.116 Cellulitis of left lower limb; B95.61 Methicillin susceptible Staphylococcus aureus infection as the cause of diseases classified elsewhere; Z82.49 Family history of ischemic heart disease and other diseases of the circulatory system; Z79.2 Long term (current) use of antibiotics
CPT/HCPCS: 36415; 80048; 80053; 80202; 85025; 85652; 86140; 87040; 87070; 87077; 87186; 87205; 96365; A4216; J1650; J2001; J3010; J3370; J7050